=== PATIENT | female | born 1995 | race Caucasian/White ===

== ENCOUNTER 2018-02-23 19:52 | Emergency (ER) | payer OTHER ==
--- NOTE | 2018-02-23 20:56 | ED.PDOC ---
History of Present Illness - General Chief Complaint: General Stated Complaint: fainted twice, weak, unsteady, tired Time Seen by Provider: 02/23/18 20:00 Source: patient, Vital Signs reviewed, family - History of Present Illness Initial Comments: She reports she has POTS & has a long hx of daily fatigue & just not feeling well. She felt that way before work this morning to the point that she had 2 unwitnessed syncopal episodes in the BR this morning. She says she fell but without injury. Her S.O. heard her tapping on the [place] door & found her lying on the floor. 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 She wears a pulse ox around her neck & checks her HR frequently. She is known to have frequent bouts of tachycardia & did so today as high as the 140s. She is seeing a welder boilermaker for this syndrome & had a normal stress test last year. Timing/Duration: constant Severity: moderate Improving Factors: nothing Worsening Factors: nothing Associated Symptoms: malaise, syncope - nausea, weakness Allergies/Adverse Reactions: Allergies Sulfa Antibiotics Allergy (Verified 02/23/18 20:16) Home Medications: Ambulatory Orders Iron 02/23/18 Vitamin D 02/23/18 Review of Systems - Review of Systems Constitutional: States: see HPI, weakness. Denies: fever EENTM: States: no symptoms reported Respiratory: States: no symptoms reported Cardiology: States: palpitations, syncope. Denies: chest pain, edema Gastrointestinal/Abdominal: States: nausea. Denies: abdominal pain, diarrhea, vomiting Genitourinary: States: no symptoms reported Musculoskeletal: States: no symptoms reported Skin: States: no symptoms reported Neurological: States: headache, weakness Endocrine: States: no symptoms reported Hematologic/Lymphatic: States: no symptoms reported Past Medical History (General) - Patient Medical History Hx Seizures: No Hx Stroke: No Hx Dementia: No Hx Asthma: No Hx of COPD: No Hx Cardiac Disorders: Yes - POTS Disease Hx Congestive Heart Failure: No Hx Pacemaker: No Hx Hypertension: No Hx Thyroid Disease: No Hx Diabetes: No Hx Gastroesophageal Reflux: No Hx Renal Disease: No Hx Cancer: No Hx of HIV: No Hx Hepatitis C: No Hx MRSA: No - Vaccination History Hx Tetanus, Diphtheria Vaccination: - unknown Hx Influenza Vaccination: Yes - Social History Hx Tobacco Use: Yes Hx Alcohol Use: No Hx Substance Use: No Hx Depression: No Family Medical History - Family History Mother Living Status: Still Living Physical Exam - Physical Exam General Appearance: Alert, Comfortable, No apparent distress Eye Exam: bilateral normal Ears, Nose, Throat: hearing grossly normal, normal ENT inspection Neck: full range of motion, supple, normal inspection Respiratory: lungs clear, no respiratory distress, no accessory muscle use Cardiovascular/Chest: regular rate, rhythm, no edema, no gallop, no murmur, tachycardia Gastrointestinal/Abdominal: non tender, soft, no organomegaly Extremity: normal range of motion, non-tender, normal inspection, no pedal edema , normal capillary refill Neurologic: no motor/sensory deficits, alert, oriented x 3, depressed affect Skin Exam: normal color, warm/dry Progress - Progress Progress: 02/23/18 22:20 feels better. She will f/u with her doctor on Sunday. Etiology in the past thought to be related to POTS. - Results/Orders Results/Orders: hypokalemia - EKG/XRAY/CT EKG: Sinus Comments: NSR @ 73; nml axis & intervals, flattened T waves Departure - Departure Clinical Impression: Hypokalemia Syncope Qualifiers: Syncope type: unspecified Qualified Code(s): R55 - Syncope and collapse Time of Disposition: 22:21 Disposition: Discharge to Home or Self Care Condition: Good Departure Forms: ED Discharge - Pt. Copy, Patient Portal Self Enrollment Instructions: Hypokalemia (DC), Syncope (Fainting) (DC) Home Medications: Ambulatory Orders Iron 02/23/18 Vitamin D 02/23/18
[2018-02-23] MEDS ORDERED: SODIUM CHLORIDE 0.9% 1000ML 1,000 ML IVS ONE (21:10)
[2018-02-23] MEDS ORDERED: POTASSIUM CHLORIDE 20 MEQ TAB PO ONE (21:57)
[2018-02-23 22:33] VITALS: BP 110/75; O2SAT 98
[2018-02-23 22:34] VITALS: TEMP 99.9
== END 2018-02-23 22:34 | disposition home or self-care (01) ==
LOC: ER 19:52
DX: R55 Syncope and collapse (principal); E87.6 Hypokalemia; I51.89 Other ill-defined heart diseases; Z88.2 Allergy status to sulfonamides; Z87.891 Personal history of nicotine dependence
CPT/HCPCS: 80053; 81025; 85025; 85379; 93005; J7030